=== PATIENT | female | born 2000 | race African-American/Black ===

== ENCOUNTER 2024-02-28 09:30 | Emergency (ER) | payer OTHER ==
[2024-02-28 10:13] VITALS: BP 121/82; PULSE 86; RESP 18; TEMP 98.6; BMI 22.3
[2024-02-28] MEDS ORDERED: CYCLOBENZAPRINE HCL 10 MG TABLET (FP) ONE (10:50)
[2024-02-28] MEDS ORDERED: IBUPROFEN 600 MG TABLET (FP) PO ONE (10:50)
[2024-02-28] MEDS ORDERED: ACETAMINOPHEN 500 MG TABLET (FP) ONE (10:50)
[2024-02-28] MEDS: ACETAMINOPHEN 500 MG TABLET (FP) PO ONE (10:53)
[2024-02-28] MEDS: CYCLOBENZAPRINE HCL 10 MG TABLET (FP) PO ONE (10:53)
[2024-02-28] MEDS: IBUPROFEN 600 MG TABLET (FP) PO ONE (10:53)
== END 2024-02-28 11:33 | disposition home or self-care (01) ==
LOC: JERFT 09:30
DX: R07.9 Chest pain, unspecified (principal); M25.562 Pain in left knee; V89.2XXA Person injured in unspecified motor-vehicle accident, traffic, initial encounter; Y93.55 Activity, bike riding; Y92.410 Unspecified street and highway as the place of occurrence of the external cause
CPT/HCPCS: 71046-TC-FY; 73562-TC-LT-FY; 99284-25